=== PATIENT | female | born 1990 | race Caucasian/White ===

== ENCOUNTER 2019-11-20 17:21 | Emergency (ER) | payer OTHER, SELFPAY ==
[2019-11-20 17:30] VITALS: BP 109/73; PULSE 108; RESP 18; TEMP 37.7; O2SAT 99
--- NOTE | 2019-11-20 17:50 | ED.FEMALEGU ---
HPI - Female Genitourinary General Chief complaint: Urogenital-Female Stated complaint: Possible UTI Time Seen by Provider: 11/20/19 17:50 Source: patient and RN notes reviewed Mode of arrival: ambulatory Limitations: no limitations History of Present Illness HPI Narrative: 29-year-old female presents with concern for possible urinary tract infection. She reports 3-day history of frequency, urgency, dysuria, cloudy urine. Reports history of urinary tract infections her last one was approximately 3-4 months ago. She denies fever, body aches, back pain, flank pain, abdominal pain, abnormal vaginal discharge, nausea, vomiting. MD elicited complaint: UTI Related Data Home Medications Medication Instructions Recorded Confirmed norethindrone ac-eth estradiol 1 tablet PO DAILY 11/20/19 11/20/19 [ ()] Allergies Allergy/AdvReac Type Severity Reaction Status Date / Time procaine Allergy Mild Other Verified 11/20/19 17:24 Review of Systems Review of Systems: Narrative: CONSTITUTIONAL: Denies malaise, chills, sweats, or fever. GASTROINTESTINAL: Denies abdominal pain, nausea, vomiting, diarrhea GENITOURINARY: Reports dysuria, frequency, urgency. Denies flank pain, abnormal vaginal discharge, hematuria. MUSCULOSKELETAL: Denies back pain All systems reviewed & are unremarkable except as noted in HPI and below PMFSH Comments At time of signature, agree with nursing past medical, surgical, social and family history. There is no relevant family history pertinent to the presenting complaint Exam Narrative: Exam Narrative: GENERAL: Well-appearing, well-nourished, and in no acute distress. HEAD: Normocephalic. EYES: PERRLA, conjunctivae clear. NECK: Supple. No lymphadenopathy CHEST: Clear to auscultation. No respiratory distress. HEART: Regular rate and rhythm. No murmur heard. Normal peripheral pulses. ABDOMEN: Soft, nontender upon palpation, nondistended, normal active bowel sounds, no palpable or pulsatile masses, no guarding. No CVA tenderness SKIN: Warm, dry, no rash. NEURO: Alert and oriented x3. PSYCH: Normal mood and affect Course Course Emergency Course: Patient is aware of diagnosis, understands and agrees to treatment plan. Anticipatory guidance given. Patient agrees to follow-up as directed and is aware of reasons to seek care at the emergency department. Portions of this record may have been created with voice recognition software Vital Signs Vital signs: Vital Signs Temperature 99.8 F H 11/20/19 17:30 Pulse Rate 108 H 11/20/19 17:30 Respiratory Rate 18 11/20/19 17:30 Blood Pressure 109/73 11/20/19 17:30 Pulse Oximetry 99 11/20/19 17:30 Temperature 99.8 F H 11/20/19 17:30 Pulse Rate 108 H 11/20/19 17:30 Respiratory Rate 18 11/20/19 17:30 Blood Pressure 109/73 11/20/19 17:30 Pulse Oximetry 99 11/20/19 17:30 Reviewed. MDM - Female Genitourinary MDM Narrative Medical decision making narrative: Exam findings and UA show no acute concerns or changes; patient is non-toxic appearing and is in no distress. Patient is appropriate for outpatient treatment and follow-up. Differential Diagnosis Differential diagnosis: Likely urinary tract infection, vaginitis and cystitis Lab Data Labs: Urine Glucose Negative Reference Range: Negative Urine Bilirubin Negative Reference Range: Negative Urine Ketone Negative Reference Range: Negative Urine Specific W[place] 1.030 Reference Range:1.001-1.035 Urine Blood Negative Reference Range: Negative * * Urine pH 6.0 Reference Range: 5.0-9.0 Urine Protein Negative Reference Range: Negative Urine Urobilinogen 0.2 Reference Range: 0.2-1.0 Urine Nitrate Negative Reference Range
== END 2019-11-20 17:59 | disposition home or self-care (01) ==
PROVIDERS: Emergency Provider Nurse Practitioner
DX: R35.0 Frequency of micturition (principal); R30.0 Dysuria; R39.15 Urgency of urination
CPT/HCPCS: 81003; 87086; 87088; 99213; G0463

== ENCOUNTER 2020-07-29 09:12 | Emergency (ER) | payer OTHER, SELFPAY ==
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
[2020-07-29 09:28] VITALS: BP 96/67; PULSE 84; RESP 16; TEMP 36.4; O2SAT 100
== END 2020-07-29 09:45 | disposition home or self-care (01) ==
PROVIDERS: Emergency Provider Nurse Practitioner Family; PCP Emergency Medicine
DX: N30.01 Acute cystitis with hematuria (principal)
CPT/HCPCS: 81003; 81025; 87086; 87088; 99213; G0463

== ENCOUNTER 2021-01-09 14:37 | Emergency (ER) | payer OTHER, SELFPAY ==
[2021-01-09 14:47] VITALS: BP 108/70; PULSE 92; RESP 18; TEMP 36.7; O2SAT 100
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
[2021-01-10 16:11] LABS: SARS-CoV-2 RNA PCR Negative
== END 2021-01-09 15:52 | disposition home or self-care (01) ==
PROVIDERS: Emergency Provider Nurse Practitioner; PCP Emergency Medicine
DX: J06.9 Acute upper respiratory infection, unspecified (principal); Z20.822 Contact with and (suspected) exposure to COVID-19; F17.200 Nicotine dependence, unspecified, uncomplicated
CPT/HCPCS: 87081; 87426; 87880; 99213; C9803; G0463; U0003; U0005

== ENCOUNTER 2021-06-21 15:35 | Emergency (ER) | payer OTHER, SELFPAY ==
[2021-06-21 15:46] VITALS: BP 105/70; PULSE 92; RESP 16; TEMP 37.6; O2SAT 99
--- NOTE | 2021-06-21 16:05 | PC.NURSE ---
soaking in technicare and water at 1600 per gilberto pharmacy technician inpatient.
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
== END 2021-06-21 16:50 | disposition home or self-care (01) ==
PROVIDERS: Emergency Provider Nurse Practitioner; PCP Emergency Medicine
DX: L02.612 Cutaneous abscess of left foot (principal)
CPT/HCPCS: 99213; G0463

== ENCOUNTER 2021-08-07 14:22 | Outpatient (CLI) | payer OTHER, SELFPAY ==
--- NOTE | ~2021-08-07 | XR_ITS ---
XR foot LT min 3V DATE: 08/07/2021 14:43 INDICATION: Left great toe pain, swelling and erythema TECHNIQUE: 4 views COMPARISON: None FINDINGS: No fracture, dislocation, periosteal reaction or bone destruction. IMPRESSION: No significant abnormality Reviewed, dictated and finalized at location B. ALLER SOFT TOP IMPRESSION: No significant abnormality
--- NOTE | ~2021-08-07 | XR_ITS ---
XR foot RT min 3V DATE: 08/07/2021 14:43 INDICATION: Right foot pain TECHNIQUE: 4 views COMPARISON: None FINDINGS: No fracture or dislocation, periosteal reaction or bone destruction. IMPRESSION: No fracture or dislocation is detected Reviewed, dictated and finalized at location B. T SNIPER
== END 2021-08-07 14:23 | disposition home or self-care (01) ==
LOC: ANHIMG 14:27
PROVIDERS: PCP Emergency Medicine; Visit Provider Emergency Medicine
DX: M79.89 Other specified soft tissue disorders (principal)
CPT/HCPCS: 73630

== ENCOUNTER 2021-12-03 10:38 | Emergency (ER) | payer OTHER, SELFPAY ==
--- NOTE | ~2021-12-03 | CT_ITS ---
EXAMINATION: CT abdomen pelvis w con EXAM DATE: 12/03/2021 13:19 INDICATION: Right lower abdominal pain. TECHNIQUE: Spiral CT of the abdomen and pelvis was performed following intravenous injection of 100 m L Omnipaque 350. Axial, coronal and sagittal images of the abdomen and pelvis were reviewed. The do se-length product (DLP) for this examination was 189.29 mGy-cm. The exposure was tailored according to patient size (auto mA exposure control), and iterative reconstruction (ASIR) was used as additiona l dose reduction technique. There is no prior study for comparison. FINDINGS: The liver, spleen, adrenal glands and pancreas are unremarkable. Gallbladder is unremarka ble. No biliary obstruction. Portal and splenic veins are patent. Kidneys enhance symmetrically. There is no hydronephrosis. The uterus is retroverted and morphologically normal. The right and lef t gonadal veins measure up to about 1 cm in diameter, could indicate pelvic congestion syndrome. The bladder is unremarkable. There is no retroperitoneal or pelvic lymphadenopathy. At least a portion of the appendix is identified, confirmed is normal, indicated on axial image 120. There are no findings to suggest acute appendicitis. The stomach and small bowel are unremarkable. There is expected amount of colonic stool. No free intraperitoneal gas. The heart is normal in si ze. There are no pericardial or pleural effusions. The lung bases are unremarkable. There are no o steoblastic or osteolytic lesions identified. IMPRESSION: 1. Retroverted uterus and dilated ovarian veins; clinical correlation for possible pelvic congestion syndrome. 2. No acute intra-abdominal findings. Reviewed, dictated and finalized at location A. IMPRESSION: 1. Retroverted uterus and dilated ovarian veins; clinical correlation for poss ible pelvic congestion syndrome. 2. No acute intra-abdominal findings.
[2021-12-03 10:43] VITALS: BP 117/71; PULSE 72; RESP 16; TEMP 36.8; O2SAT 100
[2021-12-03 11:00] LABS: Basophils Percent Auto 0.2 % (0.2-1.2); Eosinophils Absolute Auto 0.1 K/mm3 (0-0.3); Eosinophils Percent Auto 1.7 % (0-4.4); Hematocrit 38.5 % (37.0-47.0); Hemoglobin 12.8 g/dL (12.0-15.0); Immature Granulocyte Absolute 0.02 K/mm3 (0.00-0.031); Immature Granulocyte Percent A 0.2 % (0-0.5); Mean Corpuscular HGB Conc 33.2 g/dl (32-36); Mean Corpuscular Hemoglobin 31.1 pg (26-34); Mean Corpuscular Volume 93.7 fl (80-100); Mean Platelet Volume 9.2 fl (7.4-10.4); Monocytes Absolute Auto 0.4 K/mm3 (0.1-0.6); Monocytes Percent Auto 5.2 % (2.6-8.5); Neutrophils Absolute Auto 6.2 K/mm3 (1.3-6.7); Neutrophils Percent Auto 73.7 % (45.5-73.1); Platelet Count Result 294 k/mm3 (150-375); Red Blood Count 4.11 M/mm3 (4.2-5.4); White Blood Count 8.4 K/mm3 (4.5-10.0)
[2021-12-03 11:05] LABS: Appearance Urine Clear (Clear); Bilirubin Urine Negative (Negative); Blood Urine Trace-lysed (Negative); Color Urine Yellow (Yellow); Glucose Urine UA Negative (Negative); Ketones Urine Negative (Negative); Leukocyte Esterase Ur Negative LEU/UL (Negative); Nitrate Urine Negative (Negative); Protein Urine Negative (Negative); Specific Grav Ur >= 1.030 (1.001-1.035); Urobilinogen Urine 0.2 mg/dL (<2.0); pH Urine 5.5 (5.0-9.0)
[2021-12-03 11:08] LABS: Add Urine Microscopic? NO
[2021-12-03 11:11] LABS: Alanine Aminotransferase 12 U/L (4-35); Albumin Level 4.3 g/dL (3.5-5.1); Alkaline Phosphatase 59 U/L (38-126); Anion Gap 6 mmol/L (8-16); Aspartate Amino Transferase 23 U/L (14-36); Bilirubin,Total 0.3 mg/dL (0.2-1.3); Blood Urea Nitrogen 11 mg/dL (7-17); Calcium 8.7 mg/dL (8.4-10.2); Carbon Dioxide 28 mmol/L (22-30); Chloride 105 mmol/L (98-107); Estimated CRCL calculation 84 ml/min; Estimated Glomerular Filt Rate > 60; Glucose 100 mg/dL (65-110); Lipase 169 U/L (23-300); Potassium 3.8 mmol/L (3.4-5.0); Sodium 139 mmol/L (137-145)
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
== END 2021-12-03 13:49 | disposition home or self-care (01) ==
PROVIDERS: Emergency Medicine; Emergency Provider Nurse Practitioner Family; PCP Emergency Medicine
DX: R10.31 Right lower quadrant pain (principal); Z72.0 Tobacco use; F32.9 Major depressive disorder, single episode, unspecified
CPT/HCPCS: 36415; 74177; 80053; 81003; 81025; 83690; 85025; 99284; Q9967

== ENCOUNTER 2022-06-04 18:41 | Emergency (ER) | payer OTHER, SELFPAY ==
[2022-06-04 18:54] VITALS: BP 115/71; PULSE 97; RESP 16; TEMP 37.6; O2SAT 100
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
== END 2022-06-04 19:15 | disposition home or self-care (01) ==
PROVIDERS: Emergency Provider Nurse Practitioner
DX: L03.818 Cellulitis of other sites (principal); F17.290 Nicotine dependence, other tobacco product, uncomplicated
CPT/HCPCS: 99213; G0463

== ENCOUNTER 2022-09-07 18:14 | Emergency (ER) | payer OTHER, SELFPAY ==
[2022-09-07 18:22] VITALS: BP 122/77; PULSE 80; RESP 16; TEMP 37.3; O2SAT 100
[2022-09-07 18:23] VITALS: BP 122/77; PULSE 80; RESP 16; TEMP 37.3; O2SAT 100
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
== END 2022-09-07 19:20 | disposition home or self-care (01) ==
PROVIDERS: Emergency Provider Nurse Practitioner
DX: J02.9 Acute pharyngitis, unspecified (principal); F17.290 Nicotine dependence, other tobacco product, uncomplicated
CPT/HCPCS: 87081; 87880; 99213; G0463

== ENCOUNTER 2024-04-15 11:40 | Emergency (ER) | payer OTHER, SELFPAY ==
[2024-04-15 11:49] VITALS: BP 118/79; PULSE 75; RESP 15; TEMP 36.9; O2SAT 100
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
[2024-04-15] MEDS: SODIUM CHLORIDE 0.9% IV 1,000 ML 999 ML IV CONT (12:18)
[2024-04-15] MEDS: PROCHLORPERAZINE EDISYLATE 10 MG/2 ML VIAL IV PUSH (12:19)
[2024-04-15] MEDS: diphenhydrAMINE HCl INJ 50 MG/ML VIAL 25 MG IV PUSH (12:19)
[2024-04-15] MEDS: KETOROLAC 15 MG/ML VIAL (*BKC) IV PUSH (12:21)
[2024-04-15 12:22] VITALS: BP 116/79; PULSE 74; RESP 15; O2SAT 100
[2024-04-15 13:55] VITALS: BP 120/74; PULSE 80; RESP 19; O2SAT 99
== END 2024-04-15 13:55 | disposition home or self-care (01) ==
PROVIDERS: Emergency Provider Emergency Medicine; PCP Emergency Medicine
DX: R51.9 Headache, unspecified (principal); F32.A Depression, unspecified
CPT/HCPCS: 96361; 96374; 96375; 99284; J0780; J1200; J1885; J7030

== ENCOUNTER 2024-11-03 14:58 | Emergency (ER) | payer OTHER, SELFPAY ==
--- NOTE | ~2024-11-03 | CT_ITS ---
EXAMINATION: CT abdomen pelvis w con DATE: 11/03/2024 16:27 INDICATION: Generalized abdominal pain TECHNIQUE: Computed tomography (CT) of the abdomen and pelvis was performed with 100 cc Omnipaque 350 intravenous contrast. The dose-length product was 179.86 mGy-cm. Automated exposure control and iter ative reconstruction technique were employed. COMPARISON: CT dated 12/03/2021. FINDINGS: Heart size normal. Lung bases unremarkable. The liver, spleen, pancreas, adrenal glands and kidneys are unremarkable. Dilated ovarian vein and periuterine veins, consistent with pelvic congest ion syndrome. Gallbladder is present. Nonspecific bowel gas pattern with moderate colonic fecal loadi ng. No significant abnormality of the aorta. No lymphadenopathy. No free air or free fluid. No abnorm al pelvic masses or fluid collections. No obstruction. IMPRESSION: 1. Dilated left ovarian and periuterine veins, consistent with pelvic congestion syndrome. 2: No acute abdominal abnormality. Reviewed, dictated and finalized at location B. IMPRESSION: 1. Dilated left ovarian and periuterine veins, consistent with pelvic congestio n syndrome. 2: No acute abdominal abnormality.
--- OUTSIDE RECORDS SUMMARY | 2024-11-03 15:06 | XMS_ITS | Data Portability ---
Author Organization [employer], Main Office Address [address] [place] [address] Care Team Providers Care Range Operator Name Role Phone MIKA VELMA Primary Care Provider [phone] VELMA CANTRELL Referring Provider [phone] Assessment Encounter Date Assessment Date Assessment LastModified by Organization Details LastModified Time 10/19/2022 10/19/2022 This note is dictated and transcribed by [employer]. Art Historian variances may occur. Despite proofreading, typographical errors may occur. Not available 10/20/2022 10:02:18 04/15/2023 04/15/2023 This note is dictated and transcribed by [employer]. Art Historian variances may occur. Despite proofreading, typographical errors may occur. Not available 04/15/2023 16:50:30 Plan of Treatment Reminders Order Date Submit Date Provider Last Modified By Organization Details Last Modified Time Details Appointments None record ed. Lab None record ed. Referral None record ed. Procedures None record ed. Surgeries None record ed. Imaging None record ed. Medication Orders None record ed. Patient TargetsNo targets recorded. Patient InstructionsNo instructions recorded. Reason for Referral None Reported. Problems Name Problem SNOMED Code Status Onset Date Resolution Date Notes Provider Name and Address Organization Details Recorded Time Ingrowing toenail 093284875 Active 022 Not Available [employer] 3 23:09:18 Wound granuloma 867964685 Active 023 Dameon Rice DPM [address] [facility] [address], [place], [address] , [employer] 3 10:01:52 Problem Notes None recorded. Procedures Surgical History Date Name Laterality Status Provider Name and Address Organization Details Recorded Time 3 Partial Nail [employer] Matrixectomy-L eft completed Dameon Rice DPM [address], [address], [place], [address], [facility] [employer] [facility] [employer] [facility] 04/15/2023 16:49:42 3 Blank Procedure Note completed Dameon Rice DPM [address], [address], [place], [address], [employer] [facility] [employer] [facility] 10/20/2022 10:01:29 Imaging Results None recorded. Procedure Notes None recorded. Medical Equipment None Reported. Allergies Allergen ID Allergen Name Allergen Category Reaction Reaction Severity Criticality Documentation Date Start Date Code Code System Note Provider Name and Address Organization Details Recorded Time 82383 procaine medicatio n Not available Not available Not available 10/14/2022 8701 RxNorm Not Available [facility] 3 23:10:15 Medications Name Sig Start Date Stop Date Status Note LastModified by Organization Details LastModified Time doxycycline hyclate 100 mg capsule TAKE 1 CAPSULE BY MOUTH TWICE DAILY FOR 7 DAYS DIRECTED active Not Available Not Available No t Available ketoconazol e 2 % shampoo active Not Available Not Available Not Available metronidazo le 0.75 % (37.5 mg/5 gram) vaginal gel INSERT 1 APPLICATO RFUL VAGINALLY DAILY FOR 5 DAYS active Not Available Not Available No t Available Medrol (Bladimir) 4 mg tablets in a dose pack take as directed active Not Available Not Available No t Available prednisone 20 mg tablet TAKE 1 TABLET BY MOUTH DAILY 08/28 completed Not Available Not Available Not Available Zithromax Z-Bladimri 250 mg tablet TAKE 2 TABLETS (500 MG) BY ORAL ROUTE ONCE DAILY FOR 1 DAY THEN 1 TABLET (250 MG) BY ORAL ROUTE ONCE DAILY FOR 4 DAYS active Not Available Not Available No t Available valacyclovi r 500 mg tablet TAKE 1 TABLET BY MOUTH EVERY DAY WITH MEALS active Not Available Not Available No t Available sulfamethox azole 800 mg-trimetho prim 160 mg tablet TAKE 1 TABLET BY MOUTH EVERY 12 HOURS UNTIL ALL TAKEN active Not Available Not Available No t Available amoxicillin 875 mg tablet TAKE 1 TABLET BY MOUTH TWICE DAILY FOR 10 DAYS active Not Available Not Available No t Available phenazopyri dine 100 mg tablet TAKE 1 TABLET BY MOUTH THREE TIMES DAILY FOR 2 DAYS AFTER MEALS 08/28 completed Not Available Not Available Not Available cephalexin 500 mg capsule Take 1 capsule twice a day by oral route as directed for 7 days. active Not Available Not Available No t Available ergocalcife rol (vitamin D2) 1,250 mcg (50,000 unit) capsule TAKE 1 CAPSULE BY MOUTH WEEKLY active Not Available Not Available No t Available medroxyprog esterone 150 mg/mL intramuscul ar suspension active Not Available Not Available N ot Available medroxyprog esterone 150 mg/mL intramuscul ar syringe ADMINISTE R 1 ML IN THE MUSCLE EVERY 3 MONTHS active Not Available Not Available No t Available 1.530 (28) 1.5 mg-30 mcg (21)/75 mg (7) tablet TAKE 1 TABLET BY MOUTH EVERY DAY active Not Available Not Available No t Available nitrofurant oin monohydrate /macrocryst als 100 mg capsule 08/28 completed Not Available Not Available Not Available Aurovela 1.01/12 (21) 1.5 mg-30 mcg tablet TAKE 1 TABLET BY MOUTH EVERY DAY active Not Available Not Available No t Available BinaxNOW COVID-19 Ag Self Test kit FOLLOW PACKAGE DIRECTION S active Not Available Not Available No t Available Vitals Date Recorded Body mass index (BMI) Body height Heart rate Body weight Systolic blood pressure Diastolic blood pressure Provider Name and Address Organization Details Last Updated DateTime 2 19.5 kg/m2 160.02 cm 81 /min 07715.1 6 g 100 mm[Hg] 80 mm[Hg] Not Available [facility] 3 23:09:02 Date Recorded Body mass index (BMI) Body height Oxygen saturation Oxygen saturation in Arterial blood by Pulse oximetry Heart rate Respiratory rate Body weight Systolic blood pressure Diastolic blood pressure Provider Name and Address Organization Details Last Updated DateTime 3 19.5 kg/m2 160.02 cm 99 % 99 % 87 /min 14 /min 33660.1 6 g 124 mm[Hg] 79 mm[Hg] Not Available [facility] 3 23:09:02 Date Recorded Body height Heart rate Respiratory rate Oxygen saturation Oxygen saturation in Arterial blood by Pulse oximetry Systolic blood pressure Diastolic blood pressure Provider Name and Address Organization Details Last Updated DateTime 3 160.02 cm 74 /min 14 /min 99 % 99 % 114 mm[Hg] 71 mm[Hg] Venecia No [employer] 3 17:43:17 Date Recorded Body height Heart rate Respiratory rate Oxygen saturation Oxygen saturation in Arterial blood by Pulse oximetry Systolic blood pressure Diastolic blood pressure Provider Name and Address Organization Details Last Updated DateTime 3 160.02 cm 95 /min 14 /min 99 % 99 % 119 mm[Hg] 73 mm[Hg] Venecia No [employer] 3 16:29:44 Social History None recorded. Functional Status None recorded. Mental Status None recorded. Family History Nothing Reported. Medical History Condition Response ALLERGIES/HAYFEVER Y USE OF NSAIDS Y BACK / NECK PROBLEMS Y HEADACHES/MIGRAINES Y ANXIETY DISORDER Y Gynecological HistoryNo gynecological history recorded. Obstetrics History GPAL:G 0 P 0 0 0 0 Past Encounters Encounter ID Performer Location Encounter Start Date Encounter Closed Date Diagnosis/Indication Diagnosis SNOMED-CT Code Diagnosis ICD10 Code Diagnosis Note [id number] [facility] [place] [address] [place] [address] 08/28/2021 00:00:00 08/28/2021 13:58:19 [id number] [facility] [place] [address] [place] [address] 10/05/2022 00:00:00 10/05/2022 15:28:04 [id number] Dameon Rice DPM [facility] [place] [address] [facility] [address] [place] [address] 10/19/2022 17:37:40 10/20/2022 14:34:45 Ingrowing toenail 808194005 L60.0 left great toenailres olvedwill return for partial matrixecto my of the affected nail corner Wound granuloma 35559415 1 L92.9 left great toesilver nitrate appliedcon tinue to monitor for signs of infection if present seek medical attention immediatel yFollow-up for planned procedure as above [id number] Dameon Rice DPM [facility] [place] [address] [facility] [place] [address] 04/15/2023 16:25:39 04/15/2023 20:40:12 Ingrowing toenail 479866324 L60.0 left great toenailmed ial cornercons ent signed- partial matrixecto my left great toeprocedu re performed thought incidentwo und care instructio ns reviewed and dispensedf ollow-up in 2-3 weeks Health Concerns Section Related Observation LastModified by Organization Detai ls LastModified Time None Recorded Concern Status LastModified by Organization Details LastModified Time None Recorded Advance Directives Directive None Recorded Payers Encounter Date Sequence Insurance Name Policy Number Policy Delarosa Covered Member ID Delarosa Member ID Guarantor Name 10/19/2022 1 [facility] ON OR AFTER 02/13/21 (MEDICAID REPLACEMENT - HMO) Tequila Franco [id number] Tequila Franco 04/15/2023 1 [facility] ON OR AFTER 02/13/21 (MEDICAID REPLACEMENT - HMO) Tequila Franco [id number] Tequila Franco Notes Date Note Type Note Provider Name and Address Organization Details Recorded Time 10/19/2022 text/html . Patient is a 32-year-old female who returns the office for follow-up on ingrown toenail of the right great toe. Patient states that the toe has significantly improved. Patient still has a small granuloma to the affected nail corner. Patient denies any further signs of infection. Patient denies any other pedal complaints. Dameon Rice DPM [address], [place] [address], [place], [address], [employer] 10/20/2022 10:02:55 04/15/2023 text/html . Patient is a 32-year-old female who returns the office for follow-up on left great toe ingrown toenail. Patient continues have mild inflammation to the medial corner. Patient states she has had some mild drainage prior to today. Patient denies any extending redness. Patient denies any fever, chills, nausea or vomiting. Dameon Rice DPM [address], [facility] [address], [place], [address], [employer] 04/15/2023 16:51:06 OBGyn Episode No OBEpisode recorded.
--- OUTSIDE RECORDS SUMMARY | 2024-11-03 15:06 | XMS_ITS | Clinical Summary ---
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 Gender Identity Not on file Sexual Orientation Not on file Plan of Treatment Health Maintenance Due Date Last Done Comments Hepatitis C Virus (HCV) Screening 1990 TdaP Immunization 1990 Hepatitis B Immunization (1 of 3 - 19+ 3-dose series) 2009 Pap Smear 2011 Cervical Cancer Screening (CCS) 2020 HPV/Cotest 2020 Influenza Immunization (#1) 2024 SARS-COV-2 Immunization ( season) 2024 Respiratory Syncytial Virus (RSV) Immunization (Adult) (1 - 1-dose 75+ series) 2065 Meningococcal Immunization (ACWY) Aged Out No longer eligible based on patient's age to complete this topic Pneumococcal Immunization Combined Aged Out No longer eligible based on patient's age to complete this topic Rotavirus Immunization Aged Out No lo nger eligible based on patient's age to complete this topic
--- OUTSIDE RECORDS SUMMARY | 2024-11-03 15:06 | XMS_ITS | Clinical Summary ---
Author Organization [facility] Address [address] [place] [id number] Care Team Providers Care [employer] Name Role Phone Lakhwinder Jonh MD Primary Care Provider [phone] Allergies Active Allergy Reactions Criticality Noted Date Comments Procaine Anxiety,Vomiting Low 04/13/2019 Medications Aurovela 1.5/30, 21, 1.5-30 mg-mcg tablet per tablet Take 1 tablet by mouth daily 01/02/20 21 Active ergocalcifero l (VITAMIN D) 50,000 unit capsule TAKE 1 CAPSULE BY MOUTH WEEKLY 02/10/20 21 Active medroxyPROGES TERone (medroxyPROGE STERone) 150 mg/mL injection medroxyprogesterone 150 mg/mL intramuscular suspension Active Aurovela Fe 1.5/30, 28, 1.5 mg-30 mcg (21)/75 mg (7) per tablet Take 1 tablet by mouth daily 02/14/20 21 Active valACYclovir (VALTREX) 500 mg tablet TAKE 1 TABLET BY MOUTH EVERY DAY WITH MEALS 02/14/20 21 Active sulfamethoxaz ole-trimethop rim (BACTRIM DS) 800-160 mg per tablet sulfamethoxazole 800 mg-trimethoprim 160 mg tablet TAKE 1 TABLET BY MOUTH TWICE DAILY Active norethindrone -ethinyl estradiol-iro n (Aurovela Fe 1.5/30, 28,) 1.5 mg-30 mcg per tablet Aurovela Fe 1.5/30 (28) 1.5 mg-30 mcg (21)/75 mg (7) tablet Act ed Active Problems Problem Noted Date Diagnosed Date Anemia 10/18/2020 Surgical History Surgery Date Site/Laterality Comments TONSILLECTOMY/ADENOIDECTOMY Medical History Medical History Date Comments Anemia Migraines Anxiety Depression Urinary tract infection Family History Medical History Relation Name Comments Hypertension Brother Hypertension Other Hypertension Sister Relation Name Status Comments Brother Other Sister Social History Tobacco Use Types Packs/Day Years Used Date Smoking Tobacco: Every Day Vaping Smokeless Tobacco: Never Personal Safety Answer Date Recorded Getting School Help Needed Not on file 10/16 Comments Unknown Sex and Gender Information Value Date Recorded Sex Assigned at Not on file Legal Sex Female 7:19 PM [employer] Gender Identity Not on file Sexual Orientation Not on file Obstetrics History Last Filed Vital Signs Vital Sign Reading Time Taken Comments Blood Pressure 110/78 02/20/2021 12:57 PM CDT Pulse 89 02/20/2021 12:57 PM CDT Temperature 37.5 C (99.5 F) 02/08/2021 6:48 PM CDT Respiratory Rate 16 02/08/2021 8:14 PM CDT Oxygen Saturation 98% 02/08/2021 8:14 PM CDT Inhaled Oxygen Concentration - - Weight 51.3 kg (113 lb) 06/16/2021 8:15 AM CDT Height 160 cm (5' 3 ) 06/16/2021 8:15 AM CDT Body Mass Index 20.02 06/16/2021 8:15 AM CDT Plan of Treatment Not on file Insurance [facility] [place] [facility] Care Teams [employer] Relationship Specialty Start Date End Date Lakhwinder John MD PCP - General Emergency Medicine 02/08/21
--- OUTSIDE RECORDS SUMMARY | 2024-11-03 15:06 | XMS_ITS | Data Portability ---
Author Organization [facility] Address [address] [place] [address] [place] [address] Care Team Providers Care Deputy Head Name Role Phone VELMA CANTRELL Primary Care Provider Assessment Encounter Date Assessment Date Assessment LastModified by Organization Details LastModified Time 02/18/2022 02/18/2022 Annual gynecological exam performed. Patient will come back in a year unless there are new symptoms. Not available 02/18/2022 15:16:07 02/26/2023 02/26/2023 Annual gynecological exam performed. Patient will come back in a year unless there are new symptoms. Not available 02/26/2023 12:38:15 Plan of Treatment Reminders Order Date Submit Date Provider Last Modified By Organization Details Last Modified Time Details Appointments None recorded. Lab test, urine 2021 022 [facility], [address], [place], [address], 15:19:21 Referral None recorded. Procedures None recorded. Surgeries None recorded. Imaging None recorded. Medication Orders Aurovela Fe 1.5/30 (28) 1.5 mg-30 mcg (21)/75 mg (7) tablet 2022 023 [id number], [address], [place], [place], [id number], 3 12:49:14 Depo-Service Supervisor a 150 mg/mL intramuscul ar suspension [address] [id number], [address] [place], [place], [id number], 3 12:39:06 Depo-Service Supervisor a 150 mg/mL intramuscul ar suspension [address], [address] [place] [address], [address], 3 12:39:06 Depo-Service Supervisor a 150 mg/mL intramuscul ar syringe [address] [facility][id number], [address] [place], [place], [id number], 3 12:39:08 metronidazo le 0.75 % (37.5 mg/5 gram) vaginal gel [address] [facility][id number], [address] [facility], [place], [place], [id number], 2 15:18:31 Aurovela 1.5/30 (21) 1.5 mg-30 mcg tablet [address] [facility]65813, [address] [place], [place], [id number], 2 15:18:34 Patient TargetsNo targets recorded. Patient InstructionsNo instructions recorded. Reason for Referral None Reported. Results Created Date Observation Date Name Description Value Unit Range Abnormal Flag Note LastModifiedBy Organization Detail LastModifiedTime 02/19/20 22 02/18/2022 IMAGE GUIDE D PAP AND HPV REGAR DLESS image guided Pap, HPV regardless of Pap result SEE RESULT S BELOW CASE REPOR T: Cytol ogy Gynec ologi eda Repor t Case: [id number] Autho alem spangler Provi sherrill: Maximino Izquierdo Colle cted: 02/18 1728 CLINICAL EDUCATION COORDINATOR Order ing Locat ion: [place] Path[facility] log[facility] Recei [place]: 02/19 0742 First Scree n: Qiana Martinez Rescr een: Willie Rosario, CT Speci men: Scree erin Pap - Image d, Cervi x STATE MENT OF ADEQU ACY: Satis facto ry for evalu ation Trans forma tion zone compo nent prese nt FINAL DIAGN OSIS: Negat ed for Intra epith elial Lesio n or Juanita urena (NIL) . Shift in tylor sugge stive of bacte rial vagin osis. Elect panda debbiejeanette gonzalo d by Willie Rosario, CT on 2021 at 1:31 PM ----- ----- ----- ----- ----- ----- ----- ----- ----- ----- ----- ----- ----- ----- ----- ----- ----- ---- HPV RESUL TS: HPV mRNA E6/E7 : No HPV mRNA Detec jose NOTE: This high risk HPV mRNA assay detec ts fourt een high- risk HPV types (16, 18, 31, 33, 35, 39, 45, 51, 52, 56, 58, 59, 66, 68) witho ut diffe renti ation . COMME NT: Note: This speci men was revie wed by a Cytot echno logis t and/o r Patho logis t (as indic ated in this repor t) after evalu ation using the Thinp rep Imagi ng Syste m. CLINI EDA INFOR MATIO N: Menst rual Statu s: LMP (if appli cable ): Clini eda Histo ry/Pr eviou s Pap: Type of Neopl charlotte (if appli cable ): Signi fican t Clini eda Findi ngs: Other Histo ry: Hormo jelena (if appli cable ): PAP EDUCA LATRICE L NOTE: The Pap Test is a scree erin test with an inher ent false negat ed rate. Liqui d-bas ed sampl ing may decre ase, but will not elimi daisy, false negat ed resul ts. A negat ed resul t does not precl ude the prese nce and/o r devel opmen t of disea se, since the prese nce of abnor mal cells in the sampl e depen ds on the locat ion of the lesio n and sampl ing techn ique. Malika nued regul ar scree erin is the best metho d of cance r preve ntion . If repor jose cytol ogic findi ng do not corre late with physi eda and/o r histo rical findi ngs, furth er inves tigat ion is recom forrest d, as clini roseline menchaca nted. Not Available [facility] [address] [place], [address], 02/24/2022 14:34:13 02/19/20 22 02/18/2022 TRICH OMONA S VAGIN RONNELL (RRNA ) trichomonas vaginalis ribosomal RNA (rrna) Negati ve negati ve Not Available [facility] [address] [place], [address], 02/24/2022 14:34:14 02/19/20 22 02/18/2022 CT/GC (KESHA) , THINP REP VIAL chlamydia trachomatis, PCR Negati ve negati ve Not Available [facility] [address] [address] [place], [address], 02/24/2022 14:34:15 02/19/20 22 02/18/2022 CT/GC (KESHA) , THINP REP VIAL neisseria gonorrhoeae, PCR Negati ve negati ve Not Available [facility] [address] [address] [place], [address], 02/24/2022 14:34:15 04/29/20 22 04/29/2022 pregn ayaz test, urine HCG negati ve Not Available [facility] [address], [place], [address], 04/29/2022 15:18:55 02/27/20 23 02/26/2023 IMAGE GUIDE D PAP AND HPV REGAR DLESS image guided Pap, HPV regardless of Pap result SEE RESULT S BELOW CASE REPOR T: Cytol ogy Gynec ologi eda Repor t Case: [id number] Autho alem spangler Provi sherrill: Freddie bernal , Zenaida Mello cted: 02/26 1407 CLINICAL EDUCATION COORDINATOR Order ing Locat ion: [place] Patho logy Recei [place]: 03/01 0800 First Scree n: Gilbert lemus ak, Sivanabella ay, CT Rescr een: Korey raya, Champ tran, CT Speci men: Shayne khan Pap - Image d, Cervi x STATE MENT OF ADEQU ACY: Satis facto ry for evalu ation Trans forma tion zone compo nent prese nt FINAL DIAGN OSIS: Negat ed for Intra epith elial Lesmitch mendoza or Juanita urena (NIL) . Elect panda barrera gonzalo d by Champ Gerardo am, CT on 2022 at 7:18 AM ----- ----- ----- ----- ----- ----- ----- ----- ----- ----- ----- ----- ----- ----- ----- ----- ----- ---- HPV RESUL TS: HPV mRNA E6/E7 : No HPV mRNA Detec jose NOTE: This high risk HPV mRNA assay detec ts fourt een high- risk HPV types (16, 18, 31, 33, 35, 39, 45, 51, 52, 56, 58, 59, 66, 68) witho ut diffe renti ation . COMME NT: This speci men was revie wed by a Cytot echno logis t and/o r Patho logis t (as indic ated in this repor t) after evalu ation using the Thinp rep Imagi ng Syste m. CLINI EDA INFOR MATIO N: Menst rual Statu s: LMP (if appli cable ): Clini eda Histo ry/Pr eviou s Pap: Type of Neopl charlotte (if appli cable ): Signi fican t Clini eda Findi ngs: Other Histo ry: Hormo jelena (if appli cable ): PAP EDUCA LATRICE L NOTE: The Pap Test is a scree erin test with an inher ent false negat ed rate. Liqui d-bas ed sampl ing may decre ase, but will not elimi daisy, false negat ed resul ts. A negat ed resul t does not precl ude the prese nce and/o r devel opmen t of disea se, since the prese nce of abnor mal cells in the sampl e depen ds on the locat ion of the lesio n and sampl ing techn ique. Malika nued regul ar scree erin is the best metho d of cance r preve ntion . If repor jose cytol ogic findi ng do not corre late with physi eda and/o r histo rical findi ngs, furth er inves tigat ion is recom forrest d, as clini roseline warra nted. Not Available [facility] (Lab) [address] [facility], [place], [address], 03/02/2023 12:31:35 02/27/20 23 02/26/2023 TRICH OMONA S VAGIN RONNELL (RRNA ) trichomonas vaginalis ribosomal RNA (rrna) Negati ve negati ve Not Available [facility] (Lab) [address] , [place], [address], 03/02/2023 12:31:36 02/27/20 23 02/26/2023 CT/GC (KESHA) , THINP REP VIAL chlamydia trachomatis, PCR Negati ve negati ve Not Available [facility] (Lab) [address] [facility], [place], [address], 03/02/2023 12:31:36 02/27/20 23 02/26/2023 CT/GC (KESHA) , THINP REP VIAL neisseria gonorrhoeae, PCR Negati ve negati ve Not Available [facility] (Lab) [address] [facility] [facility], [place], [address], 03/02/2023 12:31:36 Result Notes None recorded. Problems Name Problem SNOMED Code Status Onset Date Resolution Date Notes Provider Name and Address Organization Details Recorded Time Routine antenata l care Completed 201410/18/2020 Supervis ion of other normal pregnanc y;Record ed Elsewher e: No Locat ion: [facility] S ource: EHR Pattern Filer mendoza: N Andrew ce ID: 0001 Arun lable Time: 04:15:00 PM Jennifer baltazar [facility] 15:26:23 Normal pregnanc y in multigra gladys [id number] Completed 201810/18/2020 Encounte r for suprvsn of normal pregnanc y, third trimeste r;Record ed Elsewher e: No Locat ion: [facility] S ource: EHR Pattern Filer mendoza: N Andrew ce ID: 0001 Arun lable Time: 11:00:00 AM Jennifer baltazar [facility] 15:25:48 Placenta previa [id number] Completed 201810/18/2020 Placenta previa specifie d as w/o hemor, second trimeste r;Record ed Elsewher e: No [facility]at [facility] S our[facility]: EHR Pattern Filer mendoza: N Andrew ce ID: 0001 Arun lable Time: 11:15:00 AM Jennifer baltazar, [facility] 15:25:49 Pregnanc y test positive [id number] Completed 201410/18/2020 Pregnanc y examinat ion or test, positive result;R ecorded Elsewher e: No Locat ion: [facility] S ource: EHR Pattern Filer mendoza: N Andrew ce ID: 0001 Arun lable Time: 04:00:00 PM Jennifer baltazar [facility] 15:26:22 Rubella screenin g status [id number] Completed 201810/18/2020 Encounte r for antenata l screenin g, unspecif ied;Enmanuel rded Elsewher e: No Locat ion: Luci haines [facility] S ource: EHR Pattern Filer mendoza: N Practi ce ID: 0001 Arun lable Time: 11:15:00 AM Jennifer Sinha [facility], [facility] 15:26:25 Clinical finding Completed 201410/18/2020 Encounte r for surveill ance of injectab le contrace ptive;Re corded Elsewher e: No Locat ion: [facility] S ource: EHR Pattern Filer mendoza: N Practi ce ID: 0001 Arun lable Time: 11:00:00 AM Jennifer Sinha [facility], [facility] 15:22:55 Amenorrh ea [id number] Completed 201410/18/2020 Absence of menstrua tion;Rec orded Elsewher e: No Locat ion: [facility] S ource: EHR Pattern Filer mendoza: N Practi ce ID: 0001 Arun lable Time: 04:00:00 PM Jennifer baltazar, [facility] 15:22:47 Gestatio n period, 24 weeks [id number] Completed 201810/18/2020 24 weeks gestatio n of pregnanc y;Record ed Elsewher e: No Locat ion: [facility] S ource: EHR Pattern Filer mendoza: N Practi ce ID: 0001 Arun lable Time: 11:15:00 AM Jennifer Sinha [facility] 15:23:14 anatomy study Completed 201410/18/2020 SCRN ANATMC SURVEY;R ecorded Elsewher e: No Locat ion: [facility] S ource: EHR Pattern Filer mendoza: N Practi ce ID: 0001 Arun lable Time: 04:30:00 PM Jennifer baltazar [facility] 15:23:10 Antenata l screenin g for malforma tion Completed 201810/18/2020 Encounte r for antenata l screenin g for malforma tions;Re corded Elsewher e: No Locat ion: Luci [facility] S ource: EHR Pattern Filer mendoza: N Emilianoti ce ID: 0001 Arun lable Time: 09:30:00 AM Jennifer baltazar [facility] 15:22:51 Postpart um care Completed 201410/18/2020 Postpart um care and examinat ion of lactatin g mother;R ecorded Elsewher e: No Locat ion: [facility] S ource: EHR Pattern Filer mendoza: Sandra Morales ce ID: 0001 Arun lable Time: 11:00:00 AM Jennifer baltazar [facility] 15:26:16 Clinical finding Completed 201810/18/2020 Unspecif ied placenta l disorder , second trimeste r;Record ed Elsewher e: No Locat ion: [facility] S ource: EHR Pattern Filer mendoza: N Andrew ce ID: 0001 Arun lable Time: 11:15:00 AM Jennifer baltazar [facility] 15:22:53 Developm ental disorder Completed 201810/18/2020 Malforma tion of placenta , unspecif ied, third trimeste r;Record ed Elsewher e: No Locat ion: [facility] S ource: EHR Pattern Filer mendoza: N Andrew ce ID: 0001 Arun lable Time: 09:30:00 AM Jennifer baltazar [facility] 15:22:48 Gestatio n period, 28 weeks [id number] Completed 201810/18/2020 28 weeks gestatio n of pregnanc y;Record ed Elsewher e: No Locat ion: Luci haines [facility] S ource: EHR Pattern Filer mendoza: N Emilianoti ce ID: 0001 Arun lable Time: 09:30:00 AM Jennifer baltazar, [facility] 15:23:[address] Concept Completed 201810/18/2020 Encntr for channel account manager exam (general ) (routine ) w/o abn findings ;Recorde d Elsewher e: No Locat ion: [facility] S ource: EHR Pattern Filer mendoza: N Emilianoti ce ID: 0001 Arun lable Time: 11:00:00 AM Jennifer baltazar, [facility] 15:26:29 Gestatio n period, 36 weeks [id number] Completed 201810/18/2020 36 weeks gestatio n of pregnanc y;Record ed Elsewher e: No Locat ion: [facility] S ource: EHR Pattern Filer mendoza: N Emilianoti ce ID: 0001 Arun lable Time: 09:15:00 AM Jennifer baltazar, [facility] 15:25:41 Single live [id number] Completed 201810/18/2020 Single live ;Re corded Elsewher e: No Locat ion: [facility] S ource: EHR Pattern Filer mendoza: N Practi ce ID: 0001 Arun lable Time: 01:30:00 PM Jennifer baltazar, [facility] 15:26:26 Pregnanc y test negative [id number] Completed 201410/18/2020 Pregnanc y examinat ion or test, negative result;R ecorded Elsewher e: No Locat ion: Jeniferlionel yancy [facility] S ource: EHR Pattern Filer mendoza: N Emilianoti ce ID: 0001 Arun lable Time: 11:15:00 AM Jennifer baltazar, [facility] 15:26:20 Ill-defi arnaldo intestin al infectio n Completed 201010/18/2020 No Show Fee;Prac jimmy ID: 0001 Jennifer baltazar, [facility] 15:25:44 Speciali zed medical examinat ion Completed 201410/18/2020 Routine gynecolo gical examinat ion;Prac jimmy ID: 0001 Jennifer baltazar, [facility] 15:26:33 Ultrason ography Completed 201410/18/2020 Antenata l screenin g for malforma tion using ultrason ics;Prac jimmy ID: 0001 Jennifer baltazar [facility] 15:26:37 Antenata l screenin g Completed 201410/18/2020 Antenata l screenin g for malforma tion using ultrason ics;Prac jimmy ID: 0001 Jennifer baltazar [facility] 15:22:50 Congenit al malforma tion [id number] Completed 201410/18/2020 Antenata l screenin g for malforma tion using ultrason ics;Prac jimmy ID: 0001 Jennifer baltazar [facility] 15:22:56 False labor at or after 37 complete d weeks of gestatio n [id number] Completed 201410/18/2020 Other threaten ed labor, antepart um;Pract ice ID: 0001 Jennifer baltazar [facility] 15:23:05 Urinary tract infectio us disease [id number] Completed 201410/18/2020 Urinary tract infectio n, site not specifie d;Practi ce ID: 0001 Jennifer baltazar, [facility] 15:26:40 Excessiv e growth affectin g manageme nt of mother [id number] Completed 201410/18/2020 GROWTH LARGE LGA;Prac jimmy ID: 0001 Jennifer baltazar [facility] 15:23:04 Situatio n with explicit context Completed 201810/18/2020 Suprvsn of preg w poor reprodct v or obstet hx, second tri;Enmanuel rded Elsewher e: No Locat ion: [facility] S ource: EHR Pattern Filer mendoza: N Practi ce ID: 0001 Arun lable Time: 10:15:00 AM Jennifer baltazar [facility] 15:26:28 Pregnanc y detectio n examinat ion Completed 201810/18/2020 Encounte r for pregnanc y test, result positive ;Recorde d Elsewher e: No Locat ion: [facility] S ource: EHR Pattern Filer mendoza: N Practi ce ID: 0001 Arun lable Time: 11:00:00 AM Jennifer baltazar [facility] 15:26:18 Gestatio n period, 32 weeks [id number] Completed 201810/18/2020 32 weeks gestatio n of pregnanc y;Record ed Elsewher e: No Locat ion: [facility] S ource: EHR Pattern Filer mendoza: N Practi ce ID: 0001 Arun lable Time: 10:30:00 AM Jennifer baltazar [facility] 15:25:37 Family planning surveill ance Completed 201410/18/2020 Surveill ance of other contrace ptive method;R ecorded Elsewher e: No Locat ion: [facility] S ource: EHR Pattern Filer mendoza: N Practi ce ID: 0001 Arun lable Time: 11:15:00 AM Jennifer baltazar [facility] 15:23:08 Mass of left breast [id number] Completed 201810/18/2020 Lump in the left breast;R ecorded Elsewher e: No Locat ion: [facility] S ource: EHR Pattern Filer mendoza: N Practi ce ID: 0001 Arun lable Time: 02:45:00 PM Jennifer baltazar [facility] 15:25:47 Gestatio n period, 17 weeks [id number] Completed 201810/18/2020 17 weeks gestatio n of pregnanc y;Record ed Elsewher e: No Locat ion: [facility] S ource: EHR Pattern Filer mendoza: N Practi ce ID: 0001 Arun lable Time: 10:15:00 AM Jennifer baltazar [facility] 15:23:12 Delivery normal [id number] Completed 201410/18/2020 NORMAL DELIVERY ;Practic e ID: 0001 Jennifer baltazar [facility] 15:23:02 Term pregnanc y delivere d [id number] Completed 201810/18/2020 Encounte r for full-ter m uncompli cated delivery ;Practic e ID: 0001 Jennifer baltazar, [facility] 15:26:35 Gestatio n period, 37 weeks [id number] Completed 201810/18/2020 37 weeks gestatio n of pregnanc y;Practi ce ID: 0001 Jennifer baltazar [facility] 15:25:42 Lochia finding Completed 201810/18/2020 Encounte r for routine postpart um follow-u p;Practi ce ID: 0001 Jennifer baltazar, [facility] 15:25:45 Anemia [id number] Active 2020 Jennifer baltazar, [facility] 15:34:01 Problem Notes None recorded. Procedures Surgical History Date Name Laterality Status Provider Name and Address Organization Details Recorded Time 02/19/20 22 Date of Last Pap Smear completed [facility] 04/15/2022 15:18:44 02/28/20 21 Colposcopy completed Rahul Encinas MD [address], [place], [address], [facility] 02/27/2021 16:43:50 02/28/20 21 Colposcopy completed [facility] 02/18/2022 15:06:50 tonsilectomy/a denoids completed [facility] 12/10/2021 12:37:38 Imaging Results None recorded. Procedure Notes None recorded. Medical Equipment None Reported. Allergies No known drug allergies Medications Name Sig Start Date Stop Date Status Note LastModified by Organization Details LastModified Time doxycycli ne hyclate 100 mg capsule TAKE 1 CAPSULE BY MOUTH TWICE DAILY FOR 7 DAYS DIRECTED 02/26 completed Not Available Not Available Not Available ketoconaz ole 2 % shampoo 04/15 completed Not Available Not Available Not Available clindamyc in HCl 300 mg capsule 10/18 completed Not Available Not Available Not Available azithromy odilia 250 mg tablet 02/26 completed Not Available Not Available Not Available Loestrin Fe 09/04 (28-Day) 1 mg-20 mcg (21)/75 mg (7) tablet Take 1 tablet every day by oral route. 04/10 completed Not Available Not Available Not Available metronida zole 0.75 % (37.5 mg/5 gram) vaginal gel INSERT 1 APPLICAT ORFUL VAGINALL Y DAILY FOR 5 DAYS 04/15 completed Not Available Not Available Not Available prednison e 20 mg tablet TAKE 1 TABLET BY MOUTH DAILY 02/11 completed Not Available Not Available Not Available acyclovir 400 mg tablet take 1 tablet by oral route every 12 hours 03/07 completed Prescrib ed Elsewher e: No Locat ion: Luci haines [facility] odify By: [email or web address] Encounmiguelito r DateTime : 02/02/20 09:45:00 AM Not Available Not Available Not Available valacyclo vir 500 mg tablet TAKE 1 TABLET BY MOUTH TWICE DAILY FOR 3 DAYS active Not Available Not Available No t Available sulfameth oxazole 800 mg-trimet hoprim 160 mg tablet TAKE 1 TABLET BY MOUTH EVERY 12 HOURS UNTIL ALL TAKEN 02/26 completed Not Available Not Available Not Available amoxicill in 875 mg tablet TAKE 1 TABLET BY MOUTH TWICE DAILY FOR 10 DAYS 02/26 completed Not Available Not Available Not Available phenazopy ridine 100 mg tablet TAKE 1 TABLET BY MOUTH THREE TIMES DAILY FOR 2 DAYS AFTER MEALS 02/10 completed Not Available Not Available Not Available doxycycli ne monohydra te 100 mg capsule 10/18 completed Not Available Not Available Not Available cephalexi n 500 mg capsule TAKE 1 CAPSULE BY MOUTH TWICE DAILY 02/26 completed Not Available Not Available Not Available ibuprofen 400 mg tablet 10/18 completed Not Available Not Available Not Available Valtrex 1 gram tablet take 1 tablet by oral route every day 09/23 completed Prescrib ed Elsewher e: No Locat ion: [facility] odify By: mendoza walden DateTime : 02/26/20 15 11:36:13 AM Not Available Not Available Not Available ergocalci ferol (vitamin D2) 1,250 mcg (50,000 unit) capsule TAKE 1 CAPSULE BY MOUTH WEEKLY active Not Available Not Available No t Available methylpre dnisolone 4 mg tablets in a dose pack FOLLOW PACKAGE DIRECTIO NS 02/26 completed Not Available Not Available Not Available medroxypr ogesteron e 150 mg/mL intramusc ular suspensio n Inject 150 mg every 3 months by intramus cular route as directed for 90 days. 02/26 completed Not Available Not Available Not Available medroxypr ogesteron e 150 mg/mL intramusc ular syringe ADMINIST ER 1 ML IN THE MUSCLE EVERY 3 MONTHS 02/26 completed Not Available Not Available Not Available Microgest in (21) 1.5 mg-30 mcg tablet TAKE 1 TABLET BY MOUTH EVERY DAY 04/15 completed Not Available Not Available Not Available (28) 1.5 mg-30 mcg (21)/75 mg (7) tablet TAKE 1 TABLET BY MOUTH EVERY DAY 2023 active Not Available Not Available Not Avai lable nitrofura ntoin monohydra te/macroc rystals 100 mg capsule take 1 capsule by oral route every 12 hours with food 10/18 completed Not Available Not Available Not Available Flucelvax Quad (PF) 60 mcg (15 mcg x 4)/0.5 mL IM syringe 10/18 completed Not Available Not Available Not Available Fluzone Quad (PF) 60 mcg (15 mcg x 4)/0.5 mL IM syringe ADM 0.5ML IM UTD 10/18 completed Not Available Not Available Not Available [employer]'s Mult[employer] min Collagen active Not Available Not Available Not Available BinaxNOW COVID-19 Ag Self Test kit FOLLOW PACKAGE DIRECTIO NS 02/26 completed Not Available Not Available Not Available Vitals Date Recorded Body height Body mass index (BMI) Body weight Systolic blood pressure Diastolic blood pressure Provider Name and Address Organization Details Last Updated DateTime 12/10/2021 160.02 cm 21 kg/m2 14622.77 g 120 mm[Hg] 80 mm[Hg] [facility] 2 12:37:07 Date Recorded Body height Body mass index (BMI) Body weight Systolic blood pressure Diastolic blood pressure Provider Name and Address Organization Details Last Updated DateTime 02/18/2022 161.93 cm 21.3 kg/m2 90957.86 g 124 mm[Hg] 76 mm[Hg] [facility] 2 15:17:03 Date Recorded Body height Body weight Systolic blood pressure Diastolic blood pressure Provider Name and Address Organization Details Last Updated DateTime 04/15/2022 161.93 cm 36598.86 g 108 mm[Hg] 62 mm[Hg] Ayde Ozuna [facility] 04/15/2022 15:18:14 Date Recorded Body height Body mass index (BMI) Body weight Systolic blood pressure Diastolic blood pressure Provider Name and Address Organization Details Last Updated DateTime 02/26/2023 161.93 cm 19.8 kg/m2 33244.97 g 109 mm[Hg] 74 mm[Hg] Ayde Gooden [facility] 12:38:33 Social History Question Answer Notes LastModified by Organizat ion Details LastModified Time Tobacco Smoking Status Former Smoker Ayde Gooden [facility], [facility] 02/26/2023 12:38:44 Do You Have An Advance Directive? No Information not available 02/26/2023 What Is Your Level Of Alcohol Consumption? Occasional Information not available 04/15/2022 Are You Blind Or Do You Have Difficulty Seeing? No Information not available 04/15/2022 What Is Your Level Of Caffeine Consumption? Moderate Information not available 04/15/2022 In The 14 Days Before Symptom Onset, Have You Had Close Contact With A Laboratory-confir med COVID-19 While That Case Was Ill? No Information not available 02/26/2023 In The 14 Days Before Symptom Onset, Have You Had Close Contact With A Person Who Is Under Investigation For COVID-19 While That Person Was Ill? No Information not available 02/26/2023 Have You Been To An Area Known To Be High Risk For COVID-19? No Information not available 02/26/2023 Are You Deaf Or Do You Have Serious Difficulty Hearing? No Information not available 04/15/2022 What Type Of Diet Are You Following? REGULAR Information not available 04/15/2022 What Is The Highest Grade Or Level Of School You Have Completed Or The Highest Degree You Have Received? 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 No Information not available 02/26/2023 Do You Use Your Seat Belt Or Car Seat Routinely? Yes Information not available 04/15/2022 Do You Have Smoke And Carbon Monoxide Detectors In Your Home? Yes Information not available 04/15/2022 How Much Tobacco Do You Smoke? No Information not available 02/26/2023 Do You Feel Stressed (tense, Restless, Nervous, Or Anxious, Or Unable To Sleep At Night)? [id number] Information not available 04/15/2022 Do You Use Any Illicit Or Recreational Drugs? No Information not available 02/26/2023 Do You Use Sunscreen Routinely? Yes Information not available 04/15/2022 How Many Years Have You Smoked Tobacco? 10 Information not available 02/26/2023 Have You Used IV Drugs? No Information not available 02/26/2023 Sex: Unknown Functional Status Question Answer Note LastModified by Organizat ion Details LastModified Time Do you have difficulty walking or climbing stairs? No Information not available 02/26/2023 Are you able to walk? YESWOREST Information not available 04/15/2022 Are you able to care for yourself? Yes Information not available 02/26/2023 Do you have difficulty dressing or bathing? No Information not available 02/26/2023 What is your exercise level? Occasional Information not available 04/15/2022 Mental Status None recorded. Family History Relationship Description Onset Age of this Age Resolved Age Notes LastModified by Organization Details LastModified Time Mother Polycystic ovary syndrome [email or web address] Not available 2021 13:56:33 Mother Anemia [email or web address] Not available 14:41:41 Sister Anemia [email or web address] Not available 14:41:41 Sister Cyst of ovary [email or web address] Not available 2021 13:56:33 Sister Hypercholest erolemia [email or web address] Not available 2019 14:42:22 Brother Hypercholest erolemia [email or web address] Not available 2019 14:42:22 Daughter Asthma Not available 0 12/10/2021 12:37:16 Medical History Condition Response Allergies (Food, seasonal, environmental ) N Other N Drug/Latex Allergies/Reactions N Breast Cancer N Blood Transfusion N Lung Disease N Dermatologic Disorders N Defects or Inherited Disease N Breast Problem N Gestational Diabetes N Hematologic disorders N Anesthesia Complications N History of STI N Deep Vein Thrombosis N Polycystic ovary syndrome N Anxiety Disorder N Autoimmune disease N Arthritis N Polyps N Infertility N History of abnormal pap Y Acid Reflux (GERD) N Cancer N Varicosities N Stroke N Neurologic/Epilepsy N Endometriosis N High Cholesterol N Headaches N Fibromyalgia N Kidney Disease N Heart Problems N Thyroid Problems N Kidney or Bladder Problems N GI Problems N Eating Disorder N Anemia Y Art (IVF or FET) N Psychiatric Illness N Ovarian Cancer N Diabetes N Pulmonary (TB, Asthma) N Hepatitis/Liver Disease N Eczema N Urinary Tract Infection Y Abuse/Domestic Violence N Asthma N Trauma/Violence N Depression/ depression N Heart Disease N Pre-Eclampsia N Hypertension N Osteoporosis N Thrombophilias N Gynecological History Statement/Question Response Abnormal Pap Y Flow Moderate Date of LMP 02/22/2023 Was last menstrual period normal Y STIs/STDs Y HPV Vaccine N Colposcopy 02/27/2021 Duration of Flow (days) 4 Current Control Method BCPs Age at First Child 19 Are cycles usually normal Y Sexually Active? Y Menses Monthly Y Age of first menstrual cycle 13 Date of Last Pap Smear 02/18/2022 Sexual Problems? N LMP Approximate Obstetrics History GPAL:G 3 P 3 0 0 3 Type Value Full Term 3 Living 3 Total 3 Past Encounters Encounter ID Performer Location Encounter Start Date Encounter Closed Date Diagnosis/Indication Diagnosis SNOMED-CT Code Diagnosis ICD10 Code Diagnosis Note [id number] Melissa Molina [facility] [address] [address] 12/07/2019 10:41:59 12/07/2019 11:14:41 Routine gynecologic examination done 4780603854 9101 Z01.419 Pap/HPV sent Declined need STD screen CBE done Take Calcium with Vitamin D 1200mg daily if not receiving in daily diet. It is strongly advised to have an annual flu shot and up can obtain at most pharmacies . If you have not had a TDap shot in the last 10 years you should obtain one as well. Discussed with patient & provided with informatio n regarding Gardisil vaccine to prevent the 4 strains for HPV that cause cervical cancer if under age 26. Encourage safe sexual practices, to use condoms and limit partners if not already in a monogamous relationsh ip. Do monthly self breast exams. Have mammogram yearly or every other year depending on family history. BRCA testing is now available for patients with strong genetic history of female cancer. If interested contact the office. Engage in daily exercise of low impact aerobic exercise 45-60 minutes 4-5 times weekly. Avoid tobacco and illicit drugs as well as using moderation with alcohol intake less than 1-2 8 oz beverages daily. This lifestyle behavior pattern will lead to less health conditions and longer life span. If BMI greater than 25 weight watchers or dietary consult advised. Patient received above instructio ns, and questions have been answered. If you have any questions please call or respond to this email. Patient was made aware of the patient portal and may obtain a paper copy of today's plan if desired. Genital he rpes simplex type 2 [id number] A60.00 Having monthly outbreaks for the last 6mos. Counseled on suppressiv e therapy with valtrex. Counseled on medication R/B's, Most common side effects, & use. All questions were answered to patient satisfacti on. She agrees to trial of daily Valtrex 500mg for suppressiv e therapy. She will f/u 3mos virtural visit check in for valtrex & Depo. Contracept ion care management [id number] Z30.9 When do Depo-Prove ra hormonal injections start to work?Most girls get their first Depo-Prove ra injection during the first 5-7 days of a normal menstrual period. You are then protected from right after you get the injection. Another way to start DepoProver a is Quick start you get the first injection when you haven t had sex for two weeks (or used a condom 100% of the time) and have a negative test. You then need to use condoms for at least 7 days after the injection for additional protection . There are possible side effects from Depo-Prove ra injection s. They can be different for each woman. They include: Irregular menstrual periods longer or shorter menstrual periods, heavier or pipefitter helper periods Loss of menstrual periods (the longer you get Depo-Prove ra injection s, the greater chance you will have no menstrual periods at all) Weight gain (women gain about 5 pounds each year for the first 3 years). But you can help maintain your weight by eating a healthy diet and getting regular exercise. Young women who are already overweight are more likely to gain weight while taking Depo-Prove ra . Headaches Dizziness Mood changes, depression Bloating Abdominal pain/disco mfort If you get any of these side effects, talk with your health care provider. It s important for you to know that most women will have very irregular periods, especially during the first 6 months you are on Depo-Prove ra . [id number] Melissa Molina [facility] [address],[place] [address] 04/10/2020 12:14:28 04/10/2020 13:43:15 [id number] Melissa Molina [facility] [address],[place] [address] 02/11/2021 14:29:46 02/11/2021 15:12:15 Gynecologic examination [id number] Z01.419 Take Calcium with Vitamin D 1200mg daily if not receiving in daily diet. It is strongly advised to have an annual flu shot and up can obtain at most pharmacies . If you have not had a TDap shot in the last 10 years you should obtain one as well. Discussed with patient & provided with informatio n regarding Gardisil vaccine to prevent the 4 strains for HPV that cause cervical cancer if under age 26. Encourage safe sexual practices, to use condoms and limit partners if not already in a monogamous relationsh ip. Do monthly self breast exams. Have mammogram yearly or every other year depending on family history. BRCA testing is now available for patients with strong genetic history of female cancer. If interested contact the office. Engage in daily exercise of low impact aerobic exercise 45-60 minutes 4-5 times weekly. Avoid tobacco and illicit drugs as well as using moderation with alcohol intake less than 1-2 8 oz beverages daily. This lifestyle behavior pattern will lead to less health conditions and longer life span. If BMI greater than 25 weight watchers or dietary consult advised. Patient received above instructio ns, and questions have been answered. If you have any questions please call or respond to this email. Patient was made aware of the patient portal and may obtain a paper copy of today's plan if desired.Cliff p/hpv sentSTD sent [facility] [id number] Z30.9 Happy on OCP.RF sent Urinary tr act infectious disease [id number] N39.0 Feels getting more frequent UTI about every 2mos.Get's tested at PCP office.Kamran ated with abx.Advise d refer to urology to ensure no other issues.Agr ees. Genital he rpes simplex [id number] A60.9 Doing well on Valtrex.Wi shes to continue. [id number] Rahul Encinas MD [facility] [address],[place] [address] 02/27/2021 15:38:07 02/28/2021 14:29:07 Screening procedure 92413961 Z13.9 Abnormal c ervical Papanicolaou smear [id number] R87.619 Colposcopy was performed. Some questionab le areas were visualized at the transition zone. They were biopsied. She tolerated it well. Not clearly abnormal , these areas. [id number] REID [facility] [address] [address] 02/18/2022 14:39:51 02/18/2022 15:37:26 Gynecologic examination 12006047 Z01.419 Z11.51 Take Calcium with Vitamin D 1200mg daily if not receiving in daily diet. It is strongly advised to have an annual flu shot and up can obtain at most pharmacies . If you have not had a TDap shot in the last 10 years you should obtain one as well. Discussed with patient & provided with informatio n regarding Gardisil vaccine to prevent the 4 strains for HPV that cause cervical cancer if under age 26. Encourage safe sexual practices, to use condoms and limit partners if not already in a monogamous relationsh ip. Do monthly self breast exams. Have mammogram yearly or every other year depending on family history. BRCA testing is now available for patients with strong genetic history of female cancer. If interested contact the office. Engage in daily exercise of low impact aerobic exercise 45-60 minutes 4-5 times weekly. Avoid tobacco and illicit drugs as well as using moderation with alcohol intake less than 1-2 8 oz beverages daily. This lifestyle behavior pattern will lead to less health conditions and longer life span. If BMI greater than 25 weight watchers or dietary consult advised. Patient received above instructio ns, and questions have been answered. If you have any questions please call or respond to this email. Patient was made aware of the patient portal and may obtain a paper copy of today's plan if desired. Pap/hpv sentSTD Screen sentGeneti c Screen discussed, consider since adoptedCol on Screen naDexa Screen naRoutine Labs UTD PCPMammo na Contracept ion care management [id number] Z30.9 Happy on OCPRF sent Vaginitis 11004950 N76.0 [id number] Melissa Molina [facility] [address],[place] [address] 12/10/2021 12:28:18 12/10/2021 13:24:09 Pain in pelvis 33043928 R10.2 Today we reviewed exam, CT results, labs, ED visit report.We discussed pelvic congestion syndrome-c ontroversi al diagnosis. She does not have any chronic pelvic pain.Her menses and related function is wnl prior to this.We agreed to monitor with menstrual/ pain/sx's diary.If sx's return will get updated TVUS and consider IR referral slu/wash-u if we feel pelvic congestion syndrome is really a possibilit y.She is due for WWE 01/2022.We can check in then & see how she is doing around that time unless needs us sooner. Time spent in visit is a total of 30 mins with at least 50% of visit consisting of counseling and review of plan of care [id number] Melissa Molina [facility] [address],[place] [address] 04/15/2022 15:10:39 04/17/2022 16:00:15 Contraception care management 508772240 Z30.9 Depo-Prove ra is a female hormonal method of control. It s very effective in preventing . Depo-Prove ra contains a synthetic (man-made) form of the hormone progestero ne, called depo medroxypro gesterone acetate (DMPA). The Depo-Prove ra injection gives 3 months protectio n against . You should get one injection every 3 months (13 weeks) to get the best protection against . It s safe to get your injection up to 3 weeks earlier if you can t get your next injection in exactly 13 weeks. This will need to be given between 1-7 of next menstrual cycle. Condoms or other secondary BC method is advised for at least the first 4wks. Possible SE's include: Mood changes, AUB, Dizziness, H/A's, bloating, loss of menstrual cycle, weight gain approx 5#'s every year for the first 3yrs. Does not prevent against STD's. Typical use only 6 out of every 100 women will become . Perfect use only 1 out of every 100 women will become . It is recommende d for Depo to be initiated at least 2yrs after you have started your menstrual cycle to protect bone health as there is a risk of bone density loss. This is usually reversible once this medication is stopped. While on this medication recommend increasing calcium in diet & taking calcium 1300mg-180 0mg daily along with dali D daily to prevent bone loss along with regular exercise. There is less of a risk of bone loss after age 18yo. After 3-5yrs use it may be recommende d to complete a dexa scan. This can be discussed with your healthcare provider. Depo consent signedFirs t injection hereWill have mother who's an CLINICAL EDUCATION COORDINATOR give additional injections Familiar with routine since on it prior to this.Depo calendary givenReque sted they log Lot#/Exp dates to bring yearly. [id number] Ayde [facility] [address] [address] 04/29/2022 13:56:27 04/30/2022 10:56:44 Contraception care management [id number] Z30.9 Depo-Prove ra is a female hormonal method of control. It s very effective in preventing . Depo-Prove ra contains a synthetic (man-made) form of the hormone progestero ne, called depo medroxypro gesterone acetate (DMPA). The Depo-Prove ra injection gives 3 months protectio n against . You should get one injection every 3 months (13 weeks) to get the best protection against . It s safe to get your injection up to 3 weeks earlier if you can t get your next injection in exactly 13 weeks. This will need to be given between 1-7 of next menstrual cycle. Condoms or other secondary BC method is advised for at least the first 4wks. Possible SE's include: Mood changes, AUB, Dizziness, H/A's, bloating, loss of menstrual cycle, weight gain approx 5#'s every year for the first 3yrs. Does not prevent against STD's. Typical use only 6 out of every 100 women will become . Perfect use only 1 out of every 100 women will become . It is recommende d for Depo to be initiated at least 2yrs after you have started your menstrual cycle to protect bone health as there is a risk of bone density loss. This is usually reversible once this medication is stopped. While on this medication recommend increasing calcium in diet & taking calcium 1300mg-180 0mg daily along with dali D daily to prevent bone loss along with regular exercise. There is less of a risk of bone loss after age 18yo. After 3-5yrs use it may be recommende d to complete a dexa scan. This can be discussed with your healthcare provider. Depo consent signedFirs t injection hereWill have mother who's an CLINICAL EDUCATION COORDINATOR give additional injections Familiar with routine since on it prior to this.Depo calendary givenReque sted they log Lot#/Exp dates to bring yearly. [id number] Melissa Molina , [facility] [address],[place] [address] 02/26/2023 12:27:29 02/26/2023 13:01:06 Gynecologic examination [id number] Z11.51 Z11.3 Z11.8 Take Calcium with Vitamin D 1200mg daily if not receiving in daily diet. It is strongly advised to have an annual flu shot and up can obtain at most pharmacies . If you have not had a TDap shot in the last 10 years you should obtain one as well. Discussed with patient & provided with informatio n regarding Gardisil vaccine to prevent the 4 strains for HPV that cause cervical cancer if under age 26. Encourage safe sexual practices, to use condoms and limit partners if not already in a monogamous relationsh ip. Do monthly self breast exams. Have mammogram yearly or every other year depending on family history. BRCA testing is now available for patients with strong genetic history of female cancer. If interested contact the office. Engage in daily exercise of low impact aerobic exercise 45-60 minutes 4-5 times weekly. Avoid tobacco and illicit drugs as well as using moderation with alcohol intake less than 1-2 8 oz beverages daily. This lifestyle behavior pattern will lead to less health conditions and longer life span. If BMI greater than 25 weight watchers or dietary consult advised. Patient received above instructio ns, and questions have been answered. If you have any questions please call or respond to this email. Patient was made aware of the patient portal and may obtain a paper copy of today's plan if desired. Pap/hpv sentSTD Screen sentGeneti c Screen discussed, consider since adoptedCol on Screen naDexa Screen naRoutine Labs UTD PCPMammo na Contracept ion care management [id number] Z30.9 Happy on OCPWishes to continueRF sent x 1yr Health Concerns Section Related Observation LastModified by Organization Detai ls LastModified Time None Recorded Concern Status LastModified by Organization Details LastModified Time None Recorded Advance Directives Directive N: Payers Encounter Date Sequence Insurance Name Policy Number Policy Delarosa Covered Member ID Delarosa Member ID Guarantor Name 12/10/2021 1 [facility] ON OR AFTER 02/13/21 (MEDICAID REPLACEMENT - HMO) Tequila Franco [id number] Tequila Franco 02/18/2022 1 [facility] ON OR AFTER 02/13/21 (MEDICAID REPLACEMENT - HMO) Tequila Franco [id number] Tequila Franco 04/15/2022 1 [facility] ON OR AFTER 02/13/21 (MEDICAID REPLACEMENT - HMO) Tequila Franco [id number] Tequila Franco 04/29/2022 1 [facility] ON OR AFTER 02/13/21 (MEDICAID REPLACEMENT - HMO) Tequila Franco [id number] Tequila Franco 02/26/2023 1 [facility] ON OR AFTER 02/13/21 (MEDICAID REPLACEMENT - HMO) Tequila Franco [id number] Tequila Franco Notes Date Note Type Note Provider Name and Address Organization Details Recorded Time 12/10/2021 text/html Here today for E D f/u for pelvic pain.Doing well today.All sx's resolved.[facility] experienced significant right sided pelvic painWent to ED around 7am as pain elevatedBy the time she got there it had started to subsideSuspect for appendicitisCT scan done abd/pelvisAll normal but noted a finding of possible pelvic congestion syndrome.Does not have chronic pelvic painStarted OCP around this time but has since stoppedNo menstrual issuesLost her spouse 7mos agoStill working through grief processFeels it might have been stressHas not been SA since prior to partner passing away. Melissa Molina [facility] [address], [place], [address], [facility] 12/10/2021 13:03:48 02/18/2022 text/html Annual GYNReport ed bypatient.Menstrual cycle:Normal menses Urinary symptoms:No hematuria; No incontinence Vulva:No genital lesion Vagina:Normal vaginal discharge Breast:No breast pain; No breast lump; No nipple discharge Current Contraception:Satisf ied with current contraception; Oral contraceptives Sexual complaints:No sexual complaints; No pain during intercourse; Normal libido Menopausal Symptoms:No menopausal symptoms; Normal vaginal lubrication Psychological symptoms:No depression; No anxiety; No PMDD Preventive measures:Encourage self breast examination; Encourage regular exercise; Encourage no tobacco use; Encourage regular mammograms starting age 40; History of abnormal pap smear/cervical dysplasia Melissa Molina [facility] [address], [place], [address], [facility] 02/18/2022 15:36:42 04/15/2022 text/html Here today for B C consult to switch from current BC back to Depo.Feels it would fit her lifestyle better with kids.Has previously been on this method.Hx updated on file. Melissa Molina [facility] [address], [place], [address], [facility] 04/16/2022 15:18:14 02/26/2023 text/html Annual GYNReport ed bypatient.History:no gynecologic complaints Menstrual cycle:Normal menses Urinary symptoms:No hematuria; No incontinence Vulva:No genital lesion Vagina:Normal vaginal discharge Breast:No breast pain; No breast lump; No nipple discharge Current Contraception:Satisf ied with current contraception; Oral contraceptives Sexual complaints:No sexual complaints; No pain during intercourse; Normal libido Menopausal Symptoms:No menopausal symptoms; Normal vaginal lubrication Psychological symptoms:No depression; No anxiety; No PMDD Preventive measures:Encourage self breast examination; Encourage regular exercise; Encourage no tobacco use; Encourage regular mammograms starting age 40; History of abnormal pap smear/cervical dysplasia Melissa Molina, [facility] [address], [place], [address], [facility] 02/26/2023 12:54:57 OBGyn Episode Ob Episode Information Episode Created Date Number of Fetuses Patient Bloodtype Patient rh Status Prepregnancy Weight lbs Domestic Partner Domestic Partner Phone Father Name Installation Coordinator Status 04/10/20 20 1 CLOSED Fetus Data First Name Last Name Admitted to NICU Weight (g) Sex Living Outcome Pediatric Complications Fetus ID Race Codes Race Delivery Type [id number] Vaginal Delivery Walter Calculation Initial Walter Date Initial Exam Date Initial Exam Provider Initial Ultrasound Date Last Menstrual Period Date Ultra Sound Weeks Gestation 0 Eighteen To Twenty Week Walter Update Ultra Sound Date Fundal Height At Umbil Quickening Date Ultra Sound Latest Weeks Gestation Final Walter Confirmed By Final Walter Confirmed Date Final Walter Date Ultra Sound Latest Days Gestation 0 0 Menstrual History Last Menstrual Date Menses Monthly On Bcp Conception Prior Menses Frequency Hcg Plus Date Menarche Onset Age Delivery Information Delivery Date Delivery Type Labor Anesthesia Weeks Gestation Incision Type Labor Labor Length Hrs Delivered By Post Complications Tubal Sterilization Discharge Date Comments 5 Discharge Information Feeding Method Contraceptive Method Maternal HG B and HCT Levels Ob Episode Information Episode Created Date Number of Fetuses Patient Bloodtype Patient rh Status Prepregnancy Weight lbs Domestic Partner Domestic Partner Phone Father Name Installation Coordinator Status 04/10/20 20 1 CLOSED Fetus Data First Name Last Name Admitted to NICU Weight (g) Sex Living Outcome Pediatric Complications Fetus ID Race Codes Race Delivery Type [id number] Vaginal Delivery Walter Calculation Initial Walter Date Initial Exam Date Initial Exam Provider Initial Ultrasound Date Last Menstrual Period Date Ultra Sound Weeks Gestation 0 Eighteen To Twenty Week Walter Update Ultra Sound Date Fundal Height At Umbil Quickening Date Ultra Sound Latest Weeks Gestation Final Walter Confirmed By Final Walter Confirmed Date Final Walter Date Ultra Sound Latest Days Gestation 0 0 Menstrual History Last Menstrual Date Menses Monthly On Bcp Conception Prior Menses Frequency Hcg Plus Date Menarche Onset Age Delivery Information Delivery Date Delivery Type Labor Anesthesia Weeks Gestation Incision Type Labor Labor Length Hrs Delivered By Post Complications Tubal Sterilization Discharge Date Comments 0 Discharge Information Feeding Method Contraceptive Method Maternal HG B and HCT Levels Ob Episode Information Episode Created Date Number of Fetuses Patient Bloodtype Patient rh Status Prepregnancy Weight lbs Domestic Partner Domestic Partner Phone Father Name Installation Coordinator Status 04/10/20 20 1 CLOSED Fetus Data First Name Last Name Admitted to NICU Weight (g) Sex Living Outcome Pediatric Complications Fetus ID Race Codes Race Delivery Type 4033 Vaginal Delivery Walter Calculation Initial Walter Date Initial Exam Date Initial Exam Provider Initial Ultrasound Date Last Menstrual Period Date Ultra Sound Weeks Gestation 0 Eighteen To Twenty Week Walter Update Ultra Sound Date Fundal Height At Umbil Quickening Date Ultra Sound Latest Weeks Gestation Final Walter Confirmed By Final Walter Confirmed Date Final Walter Date Ultra Sound Latest Days Gestation 0 0 Menstrual History Last Menstrual Date Menses Monthly On Bcp Conception Prior Menses Frequency Hcg Plus Date Menarche Onset Age Delivery Information Delivery Date Delivery Type Labor Anesthesia Weeks Gestation Incision Type Labor Labor Length Hrs Delivered By Post Complications Tubal Sterilization Discharge Date Comments 9 Prolonge d SROM treated x2 Discharge Information Feeding Method Contraceptive Method Maternal HG B and HCT Levels
--- OUTSIDE RECORDS SUMMARY | 2024-11-03 15:06 | XMS_ITS | Clinical Summary ---
Author Organization [facility] Address [address] [place] [id number] Care Team Providers Care Musical Engineer Name Role Phone Lakhwinder John MD Primary Care Provider [phone] Allergies Active Allergy Reactions Criticality Noted Date Comments Procaine Anxiety,Vomiting Low 04/13/2019 Social History Tobacco Use Types Packs/Day Years Used Date Smoking Tobacco: Never Assessed Comments Unknown Sex and Gender Information Value Date Recorded Sex Assigned at Not on file Legal Sex Female 12:15 PM CDT Gender Identity Not on file Sexual Orientation Not on file Plan of Treatment Health Maintenance Due Date Last Done Comments Cervical Cancer Screening Pa p Smear (Age 30 to 64) Every 3 Years 1990 Annual Physical 1993 Hepatitis C 2008 DTaP, Tdap and Td Vaccines ( 1 - Tdap) 2009 Hepatitis B Vaccines (1 of 3 - 19+ 3-dose series) 2009 Cervical Cancer Screening Pa p with HPV Testing (Age 30 to 64) Every 5 Years 2020 Cervical Cancer Screening with HPV 2020 COVID-19 Vaccine ( - 2023-2 5 season) 2024 Influenza Adult (#1) 2024 HPV Vaccines Aged Out No longer eligi ble based on patient's age to complete this topic Meningococcal B Vaccine Aged Out No l onger eligible based on patient's age to complete this topic Meningococcal Vaccine Aged Out No lolita mellisa eligible based on patient's age to complete this topic Pneumococcal Vaccine: Pediat rics (0 to 5 Years) and At-Risk Patients (6 to 64 Years) Aged Out No longer eligible b ased on patient's age to complete this topic RSV Immunizations Under 20 Months Aged Out No longer eligible based on patient's age to complete this topic Insurance [employer] Care Teams Musical Engineer Relationship Specialty Start Date End Date Lakhwinder John MD [address] [id number] PCP - General FAMILY PRACTICE 04/12/19
--- OUTSIDE RECORDS SUMMARY | 2024-11-03 15:06 | XMS_ITS | Referral Summary ---
Author Organization [facility] Address [address] [place] [id number] Care Team Providers Care Distribution Lineman Name Role Phone Lakhwinder John MD Primary Care Provider [phone] Allergies Active Allergy Reactions Criticality Noted Date [...] Problem Noted Date Diagnosed Date Anemia 10/18/2020 Social History Tobacco Use Types Packs/Day Years Used Date Smoking Tobacco: Every Day Vaping Smokeless Tobacco: Never Personal Safety Answer Date Recorded Getting School Help Needed Not on file 10/16 Comments Unknown Sex and Gender Information Value Date Recorded Sex Assigned at Not on file 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
--- OUTSIDE RECORDS SUMMARY | 2024-11-03 15:06 | XMS_ITS | Clinical Summary ---
Author Organization [facility] Address [address] [address] Care Team Providers Care Crib Pad Maker Name Role Phone Rosette Erazo MD Primary Care Provider [phone] Source Comments [facility],non-owned Affiliates and Associated Physician Practices is amultiple site organization consisting of ambulatory clinics and hospital sitesin [place], [place], [place] and [place]. This disclosure is being madepursuant to the Care Everywhere program and may not contain all information available regarding this patient. Last updated 18.[facility] [employer] Social History Tobacco Use Types Packs/Day Years Used Date Smoking Tobacco: Never Assessed Sex and Gender Information Value Date Recorded Sex Assigned at Not on file Gender Identity Not on file Sexual Orientation Not on file Plan of Treatment Health Maintenance Due Date Last Done Comments PAP SMEAR 1990 HIV SCREENING 2005 HEPATITIS C SCREENING 09/20/2008 DTAP/TDAP/TD VACCINES (1 - Tdap) 2009 HEPATITIS B VACCINE (1 of 3 - 19+ 3-dose series) 2009 COVID-19 VACCINE ( - 2023-2 5 season) 2024 INFLUENZA VACCINE (#1) 2024 DEPRESSION SCREENING 08/16/2024 ZOSTER VACCINE (1 of 2) 2040 HIB VACCINE Aged Out No longer eligi ble based on patient's age to complete this topic HPV VACCINE Aged Out No longer eligi ble based on patient's age to complete this topic MENINGOCOCCAL (Group B) VACC INE SHARED DECISION-MAKING Aged Out No longer eligibl e based on patient's age to complete this topic MENINGOCOCCAL GROUPS A/C/Y/W VACCINE Aged Out No longer eligible b ased on patient's age to complete this topic PNEUMOCOCCAL VACCINE Aged Out No long er eligible based on patient's age to complete this topic Care Teams Crib Pad Maker Relationship Specialty Start Date End Date Rosette Erazo MD [address] [place] [address] PCP - General 04/23/09
[2024-11-03 15:09] VITALS: BP 123/86; PULSE 104; RESP 16; TEMP 36.8; O2SAT 98
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
[2024-11-03 15:29] LABS: BEDSIDEPREGUCG Negative (Negative)
[2024-11-03 15:34] LABS: Basophils Percent Auto 0.3 % (0.2-1.2); Eosinophils Absolute Auto 0.2 K/mm3 (0-0.3); Eosinophils Percent Auto 2.4 % (0-4.4); Hematocrit 40.1 % (37.0-47.0); Hemoglobin 12.8 g/dL (12.0-15.0); Immature Granulocyte Absolute 0.04 K/mm3 (0.00-0.031); Immature Granulocyte Percent A 0.5 % (0-0.5); Lymphocytes Absolute Auto 1.25 K/mm3 (0.9-3.2); Lymphocytes Percent Auto 15.7 % (18.3-44.2); Mean Corpuscular HGB Conc 31.9 g/dl (32-36); Mean Corpuscular Hemoglobin 30.3 pg (26-34); Mean Corpuscular Volume 94.8 fl (80-100); Mean Platelet Volume 9.5 fl (7.4-10.4); Monocytes Absolute Auto 0.6 K/mm3 (0.1-0.6); Monocytes Percent Auto 7.2 % (2.6-8.5); Neutrophils Absolute Auto 5.9 K/mm3 (1.3-6.7); Neutrophils Percent Auto 73.9 % (45.5-73.1); Platelet Count Result 249 k/mm3 (150-375); Red Blood Count 4.23 M/mm3 (4.2-5.4); Red Cell Distribution Width 13.5 % (11.5-14.5)
[2024-11-03 15:43] LABS: Add Urine Microscopic? YES; Appearance Urine Cloudy (Clear); Bacteria Urine 4+ /hpf; Bilirubin Urine Negative (Negative); Blood Urine Negative (Negative); Color Urine Dark Yellow (Yellow); Glucose Urine UA Negative (Negative); Ketones Urine Trace mg/dL (Negative); Leukocyte Esterase Ur Trace LEU/UL (Negative); Need Manual Microscopic Reviewed; Nitrate Urine Negative (Negative); Non Pathogenic Casts 0-2; Protein Urine Trace mg/dL (Negative); Squamous Epithelial Cell Urine Many /hpf (Few); Urobilinogen Urine 0.2 mg/dL (<2.0); pH Urine 5.5 (5.0-9.0)
[2024-11-03 15:45] LABS: Alanine Aminotransferase 21 U/L (6-35); Albumin Level 4.6 g/dL (3.5-5.1); Alkaline Phosphatase 60 U/L (38-126); Anion Gap 11 mmol/L (4-12); Aspartate Amino Transferase 23 U/L (14-36); Bilirubin,Total 0.4 mg/dL (0.2-1.3); Blood Urea Nitrogen 16 mg/dL (7-17); Calcium 9.2 mg/dL (8.4-10.2); Carbon Dioxide 23 mmol/L (22-30); Chloride 104 mmol/L (98-107); Estimated CRCL calculation 72 ml/min; Estimated Glomerular Filt Rate > 60; Glucose 116 mg/dL (65-110); Lipase 117 U/L (23-300); Potassium 3.5 mmol/L (3.4-5.0); Sodium 138 mmol/L (137-145)
[2024-11-03 18:39] VITALS: BP 107/69; PULSE 79; RESP 18; O2SAT 100
[2024-11-03] MEDS: ONDANSETRON INJ 4 MG/2 ML VIAL IV PUSH (18:39)
--- OUTSIDE RECORDS SUMMARY | 2024-11-03 18:42 | XMS_ITS | Clinical Summary ---
Author Organization 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
--- OUTSIDE RECORDS SUMMARY | 2024-11-03 18:42 | XMS_ITS | Clinical Summary ---
Author Organization [facility] Address [address] [place] [id number] Care Team Providers Care Telephone Engineer Name Role Phone Lakhwinder John MD Primary Care Provider [phone] Allergies Active Allergy Reactions Criticality Noted Date [...] patient's age to complete this topic Insurance [employer] Care Teams Telephone Engineer Relationship Specialty Start Date End Date Lakhwinder John MD [address] [phone] PCP - General FAMILY PRACTICE 04/12/19
--- OUTSIDE RECORDS SUMMARY | 2024-11-03 18:42 | XMS_ITS | Referral Summary ---
Author Organization [facility] Address [address] [place] [id number] Care Team Providers Care Packaging Design Engineer Name Role Phone Lakhwinder John MD Primary Care Provider [phone] Allergies Active Allergy Reactions Criticality Noted Date [...] on file Legal Sex Female 7:19 PM [employer]PECT[employer] Gender Identity Not on file Sexual Orientation [...] Plan of Treatment Not on file Insurance [facility] IDPA [facility] Care Teams Packaging Design Engineer Relationship Specialty Start Date End Date Lakhwinder John MD PCP - General Emergency Medicine 02/08/21
--- OUTSIDE RECORDS SUMMARY | 2024-11-03 18:42 | XMS_ITS | Clinical Summary ---
Author Organization [facility] Address [address] [facility] [place] [address] Care Team Providers Care Freelance Court Stenographer Name Role Phone Rosette Erazo MD Primary Care Provider [phone] Source Comments [facility],non-owned Affiliates and Associated Physician Practices is amultiple site organization consisting of ambulatory clinics and hospital sitesin [place], [place], [place] and [place]. This disclosure is being madepursuant to the Care Everywhere program and may not contain all information available regarding this patient. Last updated 18.[facility] [address] Social History Tobacco Use Types Packs/Day Years [...] age to complete this topic Care Teams Freelance Court Stenographer Relationship Specialty Start Date End Date Rosette Erazo MD [address] [place] [phone] PCP - General 04/23/09
--- OUTSIDE RECORDS SUMMARY | 2024-11-03 18:42 | XMS_ITS | Clinical Summary ---
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
[2024-11-03] MEDS: NITROFURANTOIN MONOHYD MACROCR 100 MG CAP PO (19:59)
== END 2024-11-03 20:02 | disposition home or self-care (01) ==
PROVIDERS: Physician Assistant; Emergency Provider Registered Nurse; PCP Emergency Medicine
DX: N39.0 Urinary tract infection, site not specified (principal); N94.89 Other specified conditions associated with female genital organs and menstrual cycle; F17.290 Nicotine dependence, other tobacco product, uncomplicated
CPT/HCPCS: 36415; 74177; 80053; 81001; 81025; 83690; 85025; 96374; 99284; A9270; J2405; Q9967

== ENCOUNTER 2025-08-11 11:45 | Emergency (ER) | payer OTHER, SELFPAY ==
[2025-08-11 11:59] VITALS: BP 104/78; PULSE 109; RESP 20; TEMP 36.8; O2SAT 99
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
[2025-08-11 12:42] LABS: EDUAAPPEAR Cloudy; EDUABILI Negative (Negative); EDUABLOOD Negative (Negative); EDUACOLOR1 Yellow; EDUAGLUCOSE Negative (Negative); EDUAKETONE Trace (Negative); EDUALEUKO 1+ (Negative); EDUANITRATE Negative (Negative); EDUAPH 5.5; EDUAPROTEIN 1+ (Negative); EDUASPGRAVITY 1.030; EDUAUROBILI 0.2
[2025-08-11 20:45] LABS: Trichomonas Vag PCR NOT DETECTED (NOT DETECTE)
== END 2025-08-11 12:48 | disposition home or self-care (01) ==
PROVIDERS: Emergency Provider Nurse Practitioner Family
DX: O23.12 Infections of bladder in pregnancy, second trimester (principal); N30.91 Cystitis, unspecified with hematuria; O99.332 Smoking (tobacco) complicating pregnancy, second trimester; F17.290 Nicotine dependence, other tobacco product, uncomplicated; Z3A.18 18 weeks gestation of pregnancy; Z11.3 Encounter for screening for infections with a predominantly sexual mode of transmission
CPT/HCPCS: 81003; 87086; 87491; 87591; 87661; 99213; G0463